=== PATIENT | male | born 2000 | race Caucasian/White ===

== ENCOUNTER 2023-06-25 20:34 | Emergency (ER) | payer OTHER, SELFPAY ==
[2023-06-25 21:21] VITALS: BP 133/82; PULSE 116; RESP 18; TEMP 36.6; O2SAT 98; BMI 23.9
--- NOTE | 2023-06-25 23:19 | ED_ITS ---
HPI - General Adult General Chief complaint: Animal Bite Stated complaint: Bilat hand lac Time Seen by Provider: 06/25/23 23:19 Source: patient Mode of arrival: ambulatory Limitations: no limitations History of Present Illness HPI narrative: Patient is a 23 year old assigned male at with no reported medical history presenting to the emergency department today with multiple cat bites / scratches. Patient states that he was in the backyard when 2 cats came into the yard and began fighting his dog. Patient states that both hands were bitten and scratched. Patient states that the invading cats were captured and taken to a local animal retirement where they will remain in quarantine. Patient denies any dizziness, lightheadedness, abdominal pain, nausea, vomiting, fever, chills, blurry vision, double vision, loss of vision, chest pain, difficulty breathing, shortness of breath, back pain, night sweats, pain with urination, increased urinary frequency, increased urinary urgency, blood in his urine or stool, syncope or a near syncopal episode, bowel incontinence, bladder incontinence, bowel retention, bladder retention, or any other complaints at this time. Onset (ago): minute(s) Location: left, right and upper extremity Relieving factors: none Exacerbating factors: none Associated symptoms: denies other symptoms Treatments prior to arrival: none Related Data Previous Rx's ?Medication ?Instructions ?Recorded amoxicillin 875 mg-potassium 1 tab PO BID 10 days #20 tabs 06/25/23 clavulanate 125 mg tablet Allergies Allergy/AdvReac Type Severity Reaction Status Date / Time No Known Allergies Allergy Verified 06/25/23 21:22 Review of Systems Constitutional: Constitutional: Reports no additional constitutional complaints, Denies chills, Denies fever(s) and Denies night sweats Eyes: Eyes: Reports no additional eye complaints, Denies blurry vision, Denies change in vision, Denies diplopia, Denies eye discharge, Denies loss of vision and Denies eye pain ENT: Denies dizziness Cardiovascular: Cardiovascular: Reports no additional cardiovascular complaints, Denies chest pain, Denies lightheadedness, Denies Loss of C onsciousness and Denies dyspnea Respiratory: Respiratory: Reports no additional respiratory complaints and Denies dyspnea Gastrointestinal: Gastrointestinal: Reports no additional gastrointestinal complaints, Denies abdominal pain, Denies melena, Denies hematochezia, Denies change in bowel habits and Denies change in stool character Genitourinary: Genitourinary: Reports no additional male genitourinary complaints, Denies hematuria, Denies oliguria, Denies difficulty urinating, Denies dysuria, Denies urinary frequency, Denies urinary hesitancy, Denies urinary incontinence and Denies urinary urgency Musculoskeletal: Musculoskeletal: Reports no additional musculoskeletal complaints, Denies numbness and Denies tingling Comments: multiple scratches and bites to the bilateral hands Neurologic: Denies dizziness, Denies loss of vision, Denies numbness and Denies tingling Psychiatric: Psychiatric: Reports no additional psychiatric complaints Endocrine: Endocrine: Reports no additional endocrine complaints Hematologic/Lymphatic: Hematologic/Lymphatic: Reports no additional hematologic/lymphatic complaints Allergic/Immunologic: Allergic/Immunologic: Reports no additional allergic/immunologic complaints PMFSH Past Medical History Attestation statement: The following information was validated with the patient. Source: old records reviewed and nursing notes reviewed Social History Social History Advance Directives: No Advance Directives Information Provided: No Physical Exam ED Vital Signs: Vital Signs - 24 hr 06/25/23 21:21 06/25/23 23:46 Temperature 97.9 F 98.4 F Pulse Rate 116 H 100 Respiratory Rate 18 16 Blood Pressure 133/82 126/82 Pulse Oximetry 98 100 Oxygen Delivery Method Room Air Room Air BMI result Body Mass Index 23.9 Const General: cooperative, no acute distress, alert and awake Nutritional Appearance: well nourished Orientation/consciousness: patient oriented x3 Limitations: no limitations [facility] Head: Yes normal to inspection and Yes atraumatic Ears: hearing grossly normal bilaterally and external ears normal General nose exam: Normal external nose present, no nasal discharge noted and no epistaxis Face and sinus: Yes normal facial exam, No abrasion and No laceration Mouth: Normal oral and palatal mucosa present, no drooling and no muffled voice Eyes General: appearance normal, both eyes and all related structures Periorbital: periorbital findings normal Eyelids: Yes eyelids normal Conjunctivae: conjunctivae normal Pupils: Equal, round and reactive pupils present EOM: EOMs intact bilaterally Neck Neck: Yes normal visual inspection, Yes full ROM and Yes no lymphadenopathy Chest Chest palpation & inspection: normal inspection of the chest Resp Effort & Inspection: normal respiratory effort and able to speak in complete sentences GI Inspection: Yes normal to inspection Neuro General: patient oriented x3 and moves all extremities Cranial nerves: Yes Equal, round and reactive pupils present Cognition (Neuro): normal cognition Motor exam (neuro): 5/5 motor strength present throughout Sensory Exam: Normal double simultaneous stimulation for sensation Coordination: [id number] test normal Extrem Other: multiple small puncture wounds and superficial scratches to the dorsal and palmar aspects of both hands - no gaping areas, no active bleeding. General: Yes full ROM and Yes capillary refill normal Psych Appearance: grossly normal Mental Status: mental status grossly normal Affect: normal affect Attitude: cooperative Thought process: Normal thought process present Thought content: Normal thought content present Insight: Good insight present (Psych) Medications Administered Discontinued Medications Generic Name Dose Route Start Last Admin Trade Name Anila PRN Reason Stop Dose Admin Amoxicillin/Clavulanate Potassium 875 mg 06/25/23 23:28 06/25/23 23:42 Amoxicillin/Potassium Clav 875 Mg Tablet PO 06/25/23 23:29 875 mg ONCE ONE Administration Oxycodone HCl 5 mg 06/25/23 23:28 06/25/23 23:42 Oxycodone Hcl Immed Release 5 Mg Tablet PO 06/25/23 23:29 5 mg ONCE ONE Administration Medical Decision Making Medical Decision Making MDM Narrative: Patient is a 23 year old assigned male at with no reported medical history presenting to the emergency department today with bilateral hand cat scratches and bites. Patient's physical exam showed multiple scratches and puncture wounds to the palmar and dorsal aspect of both hands. None of the wounds were gaping / requiring manual closure and none of them were actively bleeding. I explained my physical exam findings to the patient. I answered all questions asked by the patient. Patient confirmed he is up to date on tetanus. Patient was offered Rabies prophylaxis however, he declined. Patient stated that given the cats are in quarantine right now, he'll decline rabies prophylaxis at this time. Patient's wounds were thoroughly irrigated and explored then wrapped with non adherent dressings. PMS was intact prior to and after wound cleaning and bandaging. Patient was given first dose of Augmentin while in the department. I stressed the importance of the patient NOT soaking the wounds. I stressed the importance of the patient performing daily wound checks and dressing changes. I stressed the importance of the patient taking his medication as prescribed. I stressed the importance of the patient following up with his primary care provider. I stressed the importance of the patient returning to the emergency department immediately if his symptoms were to worsen or if he were to develop any dizziness, shortness of breath, difficulty breathing, chest pain, blurry vision, loss of vision, nausea, vomiting, abdominal pain, fever, chills, back pain, or any other complaints. Patient verbalized agreement and understanding with this treatment plan and discharge. Differential Diagnosis Differential Diagnoses: The differential diagnosis associated with the presentation includes Cat bite Cat scratch Animal bite Animal scratch Admission/Observation Consideration of admission/observation: Escalation of care including admission/observation considered Patient would have been admitted to the hospital had his clinical presentation warranted hospital admission. Tests considered The following testing was considered but not selected: I considered an x-ray of the patient's hands however, the patient's current clinical presentation and mechanism of injury did not warrant this. I discussed this with the patient who verbalized understanding and agreement. Prescription Management I considered prescription management with: Antibiotic (given the mechanism of injury, the patient was prescribed an antibiotic.) Discharge Plan Discharge Clinical Impression: Cat bite Patient Disposition: Home, Self-Care Instructions: Animal Bite (ED) Additional Instructions: Do NOT soak the affected areas. Perform daily wound checks and dressing changes. Take your antibiotic as prescribed. If you find out the animal has rabies or you change your mind about rabies prophylaxis - please immediately return to the ER. Follow up with your primary care provider. Return to the emergency department immediately if your symptoms worsen or if you develop any dizziness, shortness of breath, difficulty breathing, chest pain, blurry vision, loss of vision, nausea, vomiting, abdominal pain, fever, chills, back pain, or any other complaints. Prescriptions: New amoxicillin-pot clavulanate 875-125 mg tablet 1 tab PO BID 10 Days Qty: 20 0RF Referrals: [facility] Family Medicine [Provider Group] (Call to establish and follow up with a primary care provider. If you already have a primary care provider, please follow up with them.) [facility] [Provider Group] [facility] Primary [facility] [Provider Group] Stand Alone Forms: Work/School Release Interventions: ED Discharge Assessment Last Done: 06/25/23 23:46 Discharge Date/Time: 06/25/23 23:46 Print Language: Venezuelan
[2023-06-25] MEDS: Amoxicillin/Potassium Clav 875 MG TABLET PO (23:42)
[2023-06-25] MEDS: oxyCODONE HCl Immed Release 5 MG TABLET PO (23:42)
--- NOTE | 2023-06-25 23:45 | PC.NURSE ---
Medicated per MAR, provided with DC paperwork.
[2023-06-25 23:46] VITALS: BP 126/82; PULSE 100; RESP 16; TEMP 36.9; O2SAT 100
== END 2023-06-25 23:46 | disposition home or self-care (01) ==
PROVIDERS: Emergency Provider Emergency Medicine Emergency Medical Services
DX: S61.452A Open bite of left hand, initial encounter (principal); S61.451A Open bite of right hand, initial encounter; W55.01XA Bitten by cat, initial encounter; W55.03XA Scratched by cat, initial encounter; Y93.89 Activity, other specified; Y92.007 Garden or yard of unspecified non-institutional (private) residence as the place of occurrence of the external cause; Y99.9 Unspecified external cause status
CPT/HCPCS: 99283

== ENCOUNTER 2023-06-27 18:48 | Emergency (ER) | payer OTHER, SELFPAY ==
--- NOTE | 2023-06-27 18:51 | ED_ITS ---
HPI - General Adult General Chief complaint: Animal Bite Stated complaint: rabies vaccine here 06/24 mult cat bites Time Seen by Provider: 06/27/23 18:50 Source: patient Mode of arrival: ambulatory Limitations: no limitations History of Present Illness HPI narrative: Patient is a 23 year old assigned male at with no reported medical history presenting to the emergency department today for rabies prophylaxis. Patient states that he was seen on 06/25/2023 for multiple cat bites / scratches and declined prophylaxis then but would like it now. Patient denies any dizziness, lightheadedness, abdominal pain, nausea, vomiting, fever, chills, blurry vision, double vision, loss of vision, chest pain, difficulty breathing, shortness of breath, back pain, night sweats, pain with urination, increased urinary frequen cy, increased urinary urgency, blood in his urine or stool, syncope or a near syncopal episode, bowel incontinence, bladder incontinence, bowel retention, bladder retention, or any other complaints at this time. Relieving factors: none Exacerbating factors: none Associated symptoms: denies other symptoms Treatments prior to arrival: none Related Data Previous Rx's ?Medication ?Instructions ?Recorded amoxicillin 875 mg-potassium 1 tab PO BID 10 days #20 tabs 06/25/23 clavulanate 125 mg tablet Allergies Allergy/AdvReac Type Severity Reaction Status Date / Time No Known Allergies Allergy Verified 06/27/23 18:53 Review of Systems Constitutional: Constitutional: Reports no additional constitutional complaints, Denies chills, Denies fever(s) and Denies night sweats Eyes: Eyes: Reports no additional eye complaints, Denies blurry vision, Denies change in vision, Denies diplopia, Denies eye discharge, Denies loss of vision and Denies eye pain ENT: Denies dizziness Cardiovascular: Cardiovascular: Reports no additional cardiovascular complaints, Denies chest pain, Denies lightheadedness, Denies Loss of Consciousness and Denies dyspnea Respiratory: Respiratory: Reports no additional respiratory complaints and Denies dyspnea Gastrointestinal: Gastrointestinal: Reports no additional gastrointestinal complaints, Denies abdominal pain, Denies melena, Denies hematochezia, Denies change in bowel habits and Denies change in stool character Genitourinary: Genitourinary: Reports no additional male genitourinary complaints, Denies hematuria, Denies oliguria, Denies difficulty urinating, Denies dysuria, Denies urinary frequency, Denies urinary hesitancy, Denies urinary incontinence and Denies urinary urgency Musculoskeletal: Musculoskeletal: Reports no additional musculoskeletal complaints, Denies numbness and Denies tingling Comments: multiple cat scratches and bites to both hands Neurologic: Denies dizziness, Denies loss of vision, Denies numbness and Denies tingling Psychiatric: Psychiatric: Reports no additional psychiatric complaints Endocrine: Endocrine: Reports no additional endocrine complaints Hematologic/Lymphatic: Hematologic/Lymphatic: Reports no additional hematologic/lymphatic complaints Allergic/Immunologic: Allergic/Immunologic: Reports no additional allergic/immunologic complaints [facility] Past Medical History Attestation statement: The following information was validated with the patient. Source: old records reviewed and nursing notes reviewed Physical Exam ED Vital Signs: Vital Signs - 24 hr 06/27/23 18:52 06/27/23 20:25 Temperature 98.2 F 98.2 F Pulse Rate 84 84 Respiratory Rate 16 16 Blood Pressure 125/75 125/75 Pulse Oximetry 96 96 Oxygen Delivery Method Room Air Room Air BMI result Body Mass Index 23.9 Const General: cooperative, no acute distress, alert and awake Nutritional Appearance: well nourished Orientation/consciousness: patient oriented x3 Limitations: no limitations [facility] Head: Yes normal to inspection and Yes atraumatic Ears: hearing grossly normal bilaterally and external ears normal General nose exam: Normal external nose present, no nasal discharge noted and no epistaxis Face and sinus: Yes normal facial exam, No abrasion and No laceration Mouth: Normal oral and palatal mucosa present, no drooling and no muffled voice Eyes General: appearance normal, both eyes and all related structures Periorbital: periorbital findings normal Eyelids: Yes eyelids normal Conjunctivae: conjunctivae normal Pupils: Equal, round and reactive pupils present EOM: EOMs intact bilaterally Neck Neck: Yes normal visual inspection, Yes full ROM and Yes no lymphadenopathy Chest Chest palpation & inspection: normal inspection of the chest Resp Effort & Inspection: normal respiratory effort and able to speak in complete sentences GI Inspection: Yes normal to inspection Neuro General: patient oriented x3 and moves all extremities Cranial nerves: Yes Equal, round and reactive pupils present Cognition (Neuro): normal cognition Motor exam (neuro): 5/5 motor strength present throughout Sensory Exam: Normal double simultaneous stimulation for sensation Coordination: [id number] test normal Extrem Other: multiple cat scratches and bites to both hands - healing well, no evidence of infection. General: Yes full ROM and Yes capillary refill normal Psych Appearance: grossly normal Mental Status: mental status grossly normal Affect: normal affect Attitude: cooperative Thought process: Normal thought process present Thought content: Normal thought content present Insight: Good insight present (Psych) Medications Administered Discontinued Medications Generic Name Dose Route Start Last Admin Trade Name Loboq PRN Reason Stop Dose Admin Rabies Immune Globulin 1,642 unit 06/27/23 18:51 06/27/23 19:50 Rabies Immune Globulin/Pf 300 Unit/Ml Vial IM 06/27/23 18:52 Not Given ONCE ONE Rabies Immune Globulin 1,642 unit 06/27/23 19:30 06/27/23 19:48 Rabies Immune Globulin/Pf 900 Unit/3 Ml Vial IM 06/27/23 19:31 1,642 unit ONCE ONE Administration Rabies Vaccine Human Diploid Cell 1 ml 06/27/23 18:51 06/27/23 19:49 Rabies Vaccine, Human Diploid (Imovax) 1 Ml Vial IM 06/27/23 18:52 1 ml .ONCE ONE Administration Medical Decision Making Medical Decision Making MDM Narrative: Patient is a 23 year old assigned male at with no reported medical history presenting to the emergency department today requesting rabies prophylaxis. I spoke with the animal park code enforcement officer assigned to this incident and she also recommended rabies prophylaxis due to high suspicion of one of the captured cats being rabid. Patient's physical exam showed multiple scratches / puncture wounds to both hands healing well, no evidence of infection. I explained my physical exam findings to the patient. I answered all questions asked by the patient. Johnson stuart received rabies prophylaxis without incident. I stressed the importance of the patient taking his medication as prescribed. I stressed the importance of the patient following up with the infusion center to finish the vaccination series and his primary care provider. I stressed the importance of the patient returning to the emergency department immediately if his symptoms were to worsen or if he were to develop any dizziness, shortness of breath, difficulty breathing, chest pain, blurry vision, loss of vision, nausea, vomiting, abdominal pain, fever, chills, back pain, or any other complaints. Patient verbalized agreement and understanding with this treatment plan and discharge. Differential Diagnosis Differential Diagnoses: The differential diagnosis associated with the presentation includes Cat scratch Rabies prophylaxis Rabies exposure Cat bite Admission/Observation Consideration of admission/observation: Escalation of care including admission/observation considered Patient would have been admitted to the hospital had his clinical presentation warranted hospital admission. Prescription Management I considered prescription management with: Antibiotic (patient already pr escribed an antibiotic which I instructed him to continue taking) Discharge Plan Discharge Clinical Impression: Rabies exposure, Animal bite Patient Disposition: Home, Self-Care Instructions: Rabies (ED) Additional Instructions: Continue your antibiotic. Follow up with your primary care provider. Return to [facility] emergency department immediately if your symptoms worsen or if you develop any dizziness, shortness of breath, difficulty breathing, chest pain, blurry vision, loss of vision, nausea, vomiting, abdominal pain, fever, chills, back pain, or any other complaints. You should get a call from the Infusion Center to schedule an appointment to receive the remainder of your required Rabies Vaccines. You will need a total of 3 more injections. If for some reason you do not receive a call from the infusion center - please call them at [phone]. Follow up with your primary care provider after completion of the vaccine to have a titer drawn to ensure the vaccines effectiveness. Prescriptions: No Action amoxicillin-pot clavulanate 875-125 mg tablet 1 tab PO BID 10 Days Qty: 20 0RF Referrals: [facility] Family Medicine [Provider Group] (Call to establish and follow up with a primary care provider. If you already have a primary care provider, please follow up with them.) [facility] Primary [facility] [Provider Group] [facility] Primary [facility] [Provider Group] Interventions: ED Discharge Assessment Last Done: 06/27/23 20:25 Discharge Date/Time: 06/27/23 20:25 Print Language: Telugu
[2023-06-27 18:52] VITALS: BP 125/75; PULSE 84; RESP 16; TEMP 36.8; O2SAT 96; BMI 23.9
[2023-06-27] MEDS: Rabies Immune Globulin/PF 900 UNIT/3 ML VIAL 1642 UNIT IM (19:48)
[2023-06-27] MEDS: Rabies Vaccine, Human Diploid (Imovax) 1 ML VIAL IM (19:49)
[2023-06-27 20:25] VITALS: BP 125/75; PULSE 84; RESP 16; TEMP 36.8; O2SAT 96
== END 2023-06-27 20:25 | disposition home or self-care (01) ==
PROVIDERS: Emergency Provider Student in an Organized Health Care Education/Training Program; PCP Internal Medicine
DX: S61.432A Puncture wound without foreign body of left hand, initial encounter (principal); S61.431A Puncture wound without foreign body of right hand, initial encounter; W55.01XA Bitten by cat, initial encounter; Y93.9 Activity, unspecified; Y92.9 Unspecified place or not applicable; Y99.9 Unspecified external cause status; Z20.3 Contact with and (suspected) exposure to rabies; Z23 Encounter for immunization
CPT/HCPCS: 90375; 90471; 90675; 96372; 99282; 99284